=== PATIENT | male | born 2005 | race Two or more races ===

== ENCOUNTER 2025-08-15 23:53 | Emergency (ER) | payer OTHER ==
[~2025-08-15] VITALS: Ht 182.9 cm; Wt 65.8 kg
[2025-08-16] MEDS ORDERED: 0.9 % SODIUM CHLORIDE 1,000 ML IV ONE (00:30)
[2025-08-16 01:33] LABS: BASO % 0.2 % (0.1-1.2); EOS # 0.00 (0.04-0.54); EOS % 0.0 % (0.7-7.0); LYMPH # 0.76 (1.18-3.74); LYMPH % 5.3 % (19.3-53.1); MEAN PLATELET VOLUME 9.50 fl (9.4-12.4); MONO # 1.26 (0.24-0.82); MONO % 8.8 % (4.7-12.5); NEUT # 12.15 (1.56-6.13); NEUT % 85.2 % (34.0-71.1); RED CELL DISTRIBUTION WIDTH 12.4 % (11.6-14.4)
[2025-08-16 01:55] LABS: ALT/SGPT 25.0 U/L (12-78); AST/SGOT 28.0 U/L (15-37); BILIRUBIN TOTAL 0.46 mg/dL (0.3-1.2); BUN CREA RATIO 9.0 (7.0-25.0); CREATININE SERUM 1.03 mg/dL (0.70-1.30); GFR 93.03; GLOBULINA 3.1 G/DL (2.4-3.5); GLUCOSE FASTING 117.0 mg/dL (65-100); OSMOLALITY SERUM 277.0 MOSM/KG (275-295)
[2025-08-16 01:57] LABS: URINE APPEARANCE Clear; URINE BILIRRUBIN Negative (NEGATIVE); URINE BLOOD Trace; URINE COLOR Yellow; URINE GLUCOSE Negative (NEGATIVE); URINE KETONE Negative (NEGATIVE); URINE LEUKOCYTE Negative; URINE NITRATE Negative; URINE PROTEIN Negative (NEGATIVE); URINE UROBILINOGEN 0.2 E.U./dl
[2025-08-16 02:06] LABS: URINE BACTERIA 1.1 uL (0.0-1933); URINE CAST 0.00 uL (0.0-1.40); URINE EPITHELIAL CELLS 0.1 uL (0.0-38.8); URINE RBC 0.8 uL (0.0-20.8); URINE WBC 0.1 uL (0.0-23.2)
[2025-08-16 02:26] LABS: COCAINE NEGATIVE (NEGATIVE); METHADONE NEGATIVE (NEGATIVE); OPIATES NEGATIVE (NEGATIVE); THC ( Cannabinoids) NEGATIVE (NEGATIVE)
[2025-08-16] MEDS ORDERED: CEFTRIAXONE SODIUM 1,000 MG VIAL IV ONE (03:30)
[2025-08-16] MEDS ORDERED: CEFTRIAXONE SODIUM 1,000 MG VIAL ONE (04:06)
[2025-08-16 06:25] LABS: BASO % 0.1 % (0.1-1.2); EOS # 0.00 (0.04-0.54); EOS % 0.0 % (0.7-7.0); LYMPH # 1.20 (1.18-3.74); LYMPH % 9.0 % (19.3-53.1); MEAN PLATELET VOLUME 9.60 fl (9.4-12.4); MONO # 1.40 (0.24-0.82); MONO % 10.5 % (4.7-12.5); NEUT # 10.70 (1.56-6.13); NEUT % 80.1 % (34.0-71.1); RED CELL DISTRIBUTION WIDTH 12.5 % (11.6-14.4)
[2025-08-16] MEDS ORDERED: ZITHROMAX500 MG PO (06:45)
[2025-08-16] MEDS ORDERED: PEPCID AC20 MG PO (06:45)
== END 2025-08-16 10:05 | disposition home or self-care (01) ==
LOC: EMR PED 23:53 → ER 23:53 → EMR PED 08-16 00:10
PROVIDERS: General Practice
DX: R00.0 Tachycardia, unspecified (principal); F98.8 Other specified behavioral and emotional disorders with onset usually occurring in childhood and adolescence; T43.625A Adverse effect of amphetamines, initial encounter